=== PATIENT | female | born 1975 | race Caucasian/White ===

== ENCOUNTER 2021-11-25 16:43 | Emergency (ER) | payer OTHER ==
[~2021-11-25] VITALS: Ht 167.6 cm; Wt 58.1 kg
[2021-11-25] MEDS ORDERED: WELLBUTRIN XL300 MG PO (17:07)
[2021-11-25] MEDS ORDERED: CLONAZEPAM1 MG PO (17:07)
== END 2021-11-25 21:18 | disposition home or self-care (01) ==
LOC: ER 16:43
DX: S99.822A Other specified injuries of left foot, initial encounter (principal); Y93.01 Activity, walking, marching and hiking; Y93.89 Activity, other specified; Y92.828 Other wilderness area as the place of occurrence of the external cause; Z91.013 Allergy to seafood

== ENCOUNTER 2024-07-05 16:40 | Emergency (ER) | payer OTHER ==
[~2024-07-05] VITALS: Ht 167.6 cm; Wt 61.2 kg
[~2024-07-05 16:40] MED LIST: CLONAZEPAM1 MG PO; WELLBUTRIN XL300 MG PO
[2024-07-05] MEDS ORDERED: TRINTELLIX10 MG PO (17:07)
[2024-07-05 18:02] LABS: MEAN CELL VOLUME 89.2 fL (80.00-100.00); MEAN CORPUSCULAR HEMOGLOBIN 31.1 pg (27.00-32.0); MEAN CORPUSCULAR HGB CONC 34.9 g/dl (32.0-36.0); PLATELET COUNT 196 K/uL (150-450); RED BLOOD COUNT 5.16 M/uL (4.00-6.00); RED CELL DISTRIBUTION WIDTH 13.1 % (11.5-14.5)
[2024-07-05 18:42] LABS: CALCIUM 9.2 mg/dL (8.5-10.1); CREATININE SERUM 0.88 mg/dL (0.55-1.02); GFR 69.18; POTASSIUM 3.42 mEq/L (3.5-5.1)
== END 2024-07-05 19:46 | disposition home or self-care (01) ==
LOC: ER 16:42
PROVIDERS: General Practice
DX: B34.9 Viral infection, unspecified (principal); R51.9 Headache, unspecified; Z91.013 Allergy to seafood; Z20.822 Contact with and (suspected) exposure to COVID-19